=== PATIENT | male | born 1995 | race Two or more races ===

== ENCOUNTER 2021-09-05 01:20 | Emergency (ER) | payer MEDICAID, OTHER ==
[~2021-09-05] VITALS: Ht 175.3 cm; Wt 89.8 kg
[2021-09-05 07:25] VITALS: BP 134/85
[2021-09-05] MEDS ORDERED: CEPH500C PO (07:49)
== END 2021-09-05 08:00 | disposition home or self-care (01) ==
LOC: ER 01:22
DX: L03.011 Cellulitis of right finger (principal)
CPT/HCPCS: 10060